=== PATIENT | male | born 1970 | race Caucasian/White ===

== ENCOUNTER 2016-10-31 09:44 | Emergency (ER) | payer BC, MEDICARE ==
[2016-10-31] MEDS ORDERED: NS 0.9% 1000 ML* 1,000 ML IV ONE (09:58)
[2016-10-31] MEDS ORDERED: NS 0.9% 1000 ML* 1,000 ML IV SCH (10:00)
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
[2016-10-31 11:03] LABS: Hematocrit 39 % (42-52); Mean Corpuscular HGB Conc 34 g/dl (31-36); Mean Corpuscular Hemoglobin 30 pg (27-31); Mean Corpuscular Volume 88 fL (80-94); Mean Platelet Volume 8 um3 (7.4-10.4); Red Blood Count 4.39 10^6/ul (4.0-5.4); Red Cell Distribution Width 14 % (10.5-15); White Blood Count 11.3 10^3/ul (3.5-10.8)
[2016-10-31 11:16] LABS: Albumin 3.6 g/dL (3.2-5.2); BUN/Creatinine Ratio 9.1 (8-20); EGFR African American 39.2 (>60); EGFR Non-African American 30.5 (>60); Globulin 2.6 g/dL (2-4); Magnesium 1.5 mg/dL (1.9-2.7); Potassium 3.7 mmol/L (3.5-5.0); Total Bilirubin 0.8 mg/dL (0.2-1.0); Total Protein 6.2 g/dL (6.4-8.9)
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
[2016-10-31] MEDS ORDERED: Acetaminophen TAB* 325 MG PO ONE (12:56)
[2016-10-31 12:57] LABS: Urine Bacteria Absent (Absent); Urine Bilirubin Negative (Negative); Urine Glucose Negative (Negative); Urine Nitrite Negative (Negative)
[2016-10-31 13:31] VITALS: BP 157/72
== END 2016-10-31 14:02 | disposition short-term general hospital (02) ==
LOC: ED 09:44
DX: S20.219A Contusion of unspecified front wall of thorax, initial encounter (principal); V43.52XA Car driver injured in collision with other type car in traffic accident, initial encounter; Y93.89 Activity, other specified; Y92.9 Unspecified place or not applicable; R07.9 Chest pain, unspecified; R09.02 Hypoxemia; Z72.0 Tobacco use
CPT/HCPCS: 36415; 70450; 71010; 71250; 72125; 74176; 80053; 81003; 81015; 83735; 85025; 93005; 99284; A9270-GY